=== PATIENT | female | born 1965 | race Caucasian/White ===

== ENCOUNTER 2017-08-08 15:30 | Outpatient (CLI) | payer BC | END 2017-08-08 15:31 | disposition home or self-care (01) | LOC: BICMAMMO 15:30 | PROVIDERS: ATTEND Family Medicine | DX: Z13.820 Encounter for screening for osteoporosis (principal); Z78.0 Asymptomatic menopausal state; M85.88 Other specified disorders of bone density and structure, other site | CPT/HCPCS: 77080 ==

== ENCOUNTER 2017-08-22 15:06 | Outpatient (CLI) | payer BC ==
--- NOTE | 2017-08-22 15:48 | MMO ---
BILATERAL SCREENING MAMMOGRAM: HISTORY: A 32-year-old female for screening mammography. COMPARISON: 01/10/16, 06/17/13. FINDINGS: Bilateral MLO and CC views of the breasts show scattered fibroglandular breast tissue. There is no e vidence of suspicious mass, suspicious clustered microcalcifications, or area of architectural distor tion. Interpretation of this mammogram is performed with the assistance of computer-aided detection. IMPRESSION: BI-RADS category 1 - negative. Annual screening mammography is recommended. BIRADS 1: Negative Routine annual screening mammography (for women over age 40) POS: DAVID
== END 2017-08-22 15:07 | disposition home or self-care (01) ==
LOC: SCSMAMMO 15:06
PROVIDERS: ATTEND Family Medicine
DX: Z12.31 Encounter for screening mammogram for malignant neoplasm of breast (principal)
CPT/HCPCS: 77067